=== PATIENT | female | born 1975 | race Caucasian/White ===

== ENCOUNTER → 2020-09-13 | Outpatient (CLI) | payer OTHER ==
[~2020-09-13] MED LIST: ANAS1TAB2 PO; LISI-542 PO; LUPR22.5 IM; METO1TAB32 PO; TAMO20TA8 PO
--- NOTE | 2020-09-13 14:59 | REP ---
INDICATION: POSSIBLE DVT COMPARISON: None. TECHNIQUE: Dyer scale and color Doppler evaluation left lower extremity using linear high frequency transducer. FINDINGS: Ultrasound examination of the left lower extremity deep venous structures from the common femoral vein to the popliteal vein demonstrates normal compressibility flow and wave patterns in response to respiration and augmentation. There is no evidence for deep venous thrombosis. IMPRESSION: No evidence for deep venous thrombosis. <Electronically signed by Sanjiv Rosen > 09/13/20 [id number]
== END ==
LOC: M RAD 14:17
PROVIDERS: ATTEND Specialist
DX: R25.2 Cramp and spasm (principal); M79.89 Other specified soft tissue disorders

== ENCOUNTER → 2020-09-28 | Outpatient (CLI) | payer OTHER ==
--- NOTE | 2020-09-28 14:56 | DEXAMM ---
INDICATION: ON AROMATASE INHIBITOR. COMPARISON: None. TECHNIQUE: Bone density was measured using dual-energy x-ray absorptionmetry (DEXA). FINDINGS: AP SPINE L1-L4 BMD 1.225 g/cm2 Young Adult T-Score is 0.2 Age Matched Z-Score 0.4. LT FEMUR, TOTAL BMD 0.992 g/cm2 Young Adult T-Score -0.1 Age Matched Z-Score 0.2. LT NECK BMD 0.956 g/cm2 Young Adult T-Score -0.6 Age Matched Z-Score 0.0. RT FEMUR, TOTAL BMD 0.979 g/cm2 Young Adult T-Score -0.2 Age Matched Z-Score 0.1. RT NECK BMD 0.927 g/cm2 Young Adult T-Score -0.8 Age Matched Z-Score -0.2. IMPRESSION: There is normal bone density of the spine. There is normal bone density of the left hip. There is normal bone density of the right hip. FOLLOW-UP: Recommendation for the next bone density exam: 5 years. <Electronically signed by Eliceo Alex > 09/28/20 [id number]
== END ==
LOC: M WHC 11:23
PROVIDERS: ATTEND Specialist
DX: Z85.3 Personal history of malignant neoplasm of breast (principal); Z79.811 Long term (current) use of aromatase inhibitors; Z90.13 Acquired absence of bilateral breasts and nipples